=== PATIENT | male | born 1955 | race Two or more races ===

== ENCOUNTER → 2019-05-04 | Outpatient (CLI) | payer OTHER | END | disposition home or self-care (01) | LOC: NUCLEAR 07:12 | DX: M81.0 Age-related osteoporosis without current pathological fracture (principal); E03.9 Hypothyroidism, unspecified | CPT/HCPCS: 78072; A9500; 77080 ==

== ENCOUNTER 2021-10-26 12:31 | Emergency (ER) | payer OTHER ==
[~2021-10-26] VITALS: Ht 167.6 cm; Wt 108.9 kg
[2021-10-26] MEDS ORDERED: MICARDIS40 MG PO (12:46)
[2021-10-26] MEDS ORDERED: CAMBIA50 MG (12:46)
[2021-10-26] MEDS ORDERED: NEURONTIN600 M1 PO (12:46)
[2021-10-26] MEDS ORDERED: CLEOCIN HCL300 MG PO (19:47)
== END 2021-10-26 21:25 | disposition home or self-care (01) ==
LOC: ER 12:31
DX: L03.116 Cellulitis of left lower limb (principal); M79.662 Pain in left lower leg